=== PATIENT | male | born 1980 | race Caucasian/White ===

== ENCOUNTER 2016-06-17 14:16 | Emergency (ER) | payer SELFPAY ==
[2016-06-17 14:51] VITALS: BP 136/82; PULSE 100; RESP 18; TEMP 98.2; O2SAT 93
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
== END 2016-06-17 15:33 | disposition home or self-care (01) ==
LOC: CED 14:16
DX: S62.657A Nondisplaced fracture of middle phalanx of left little finger, initial encounter for closed fracture (principal); Y04.0XXA Assault by unarmed brawl or fight, initial encounter; Y92.59 Other trade areas as the place of occurrence of the external cause
CPT/HCPCS: 73140-PO; 99203-PO; G0463-PO